=== PATIENT | male | born 1960 | race Caucasian/White ===

== ENCOUNTER 2017-02-19 09:59 | Emergency (ER) ==
[2017-02-19 10:21] LABS: MANUAL DIFF NEEDED? NO
[2017-02-19 10:31] LABS: BASO% 0.4 % (0.0-0.8); EOS# 0.09 X1000 (0.0-0.7); EOS% 1.1 % (0.0-10.0); HEMATOCRIT 43.3 % (42.0-52.0); HEMOGLOBIN 15.2 g/dL (14.0-18.0); IMM GRAN# 0.03 X1000 (0.0-0.04); IMM GRAN% 0.4 % (0.0-0.5); LYMPH# 1.18 X1000 (1.2-3.4); LYMPH% 14.1 % (20.5-51.1); MCH 30.3 PG (27-31); MCHC 35.1 g/dL (33-37); MCV 86.4 FL (81-99); MONO# 0.57 X1000 (0.11-0.59); MONO% 6.8 % (1.7-9.3); MPV 10.8 FL (7.4-10.4); NEUT% 77.2 % (42.2-75.2); PLT 235 X1000 (130-400); RBC 5.01 XMIL (4.7-6.1)
[2017-02-19 10:48] LABS: AGAP 14; ALBUMIN 4.4 g/dL (3.5-5.0); ALKALINE PHOSPHATASE 108 U/L (32-122); AMYLASE 31 U/L (20-200); BUN 12 mg/dL (8-22); CALCIUM 9.8 mg/dL (8.8-10.2); CHLORIDE 90 mmol/L (98-107); COSMO 270; GOT 37 U/L (10-34); GPT 48 U/L (10-44); LIPASE 32 U/L (13-60); POTASSIUM 3.9 mmol/L (3.5-5.1); SODIUM 132 mmol/L (136-145); TCO2 28 mmol/L (25-35); TOTAL BILIRUBIN 1.13 mg/dL (0.20-1.00)
[2017-02-19 11:22] LABS: URINE CULTURE NEEDED? NO; URINE MICRO REVIEW NEEDED? NO; URINE SOURCE CLEAN CATCH
[2017-02-19 11:34] LABS: BILIRUBIN URINE NEGATIVE (NEGATIVE); BLOOD URINE NEGATIVE (NEGATIVE); COLOR YELLOW; GLUCOSE URINE 200 mg/dL (NEGATIVE); LEUKOCYTES URINE NEGATIVE (NEGATIVE); NITRITE URINE NEGATIVE (NEGATIVE); PROTEIN URINE 50 mg/dL (NEGATIVE); SP GRAVITY URINE 1.014; TURBIDITY URINE CLEAR (CLEAR); UROBILINOGEN URINE NORMAL (NORMAL)
[2017-02-19 11:37] LABS: UR EPITHELIAL CELLS <10 /HPF (<10); URINE BACTERIA NEGATIVE /HPF; URINE RBC <10 /HPF (<10); URINE WBC <10 /HPF (<10)
--- NOTE | 2017-02-19 11:37 | PROVIDER DOCUMENTATION ---
HPI-Abdominal Pain/GI Problem - General Chief Complaint: Abdominal Pain Stated Complaint: ABD PAIN Time Seen by Provider: 02/19/17 11:14 Source: patient Allergies/Adverse Reactions: Patient Allergies Allergy/AdvReac Type Severity Reaction Status Date / Time No Known Allergies Allergy Verified 02/19/17 11:10 Home Medications: Home Medication List Medication Instructions Recorded Confirmed Last Taken Type Amlodipine Besylate/Benazepril 1 each PO DAILY 08/26/16 02/19/17 02/19/17 05:00 History [Amlodipine-Benazepril 5-20 mg] Glipizide [Glipizide ER] 10 mg PO DAILY 08/26/16 02/19/17 02/19/17 05:00 History Levothyroxine [Synthroid] 112 microgm PO DAILY 08/26/16 02/19/17 02/19/17 05:00 History Metformin [Glucophage] 500 mg PO BID CC 08/26/16 02/19/17 02/19/17 05:00 History Metoprolol [Lopressor] 50 mg PO HS 08/26/16 02/19/17 02/19/17 05:00 History Triamterene/Hydrochlorothiazid 1 tab PO DAILY 08/26/16 02/19/17 02/19/17 05:00 History [Triamterene-Hctz 37.5-25 mg Tb] Cetirizine [Zyrtec] 10 mg PO DAILY 02/19/17 02/19/17 02/19/17 05:00 History Omeprazole 40 mg PO DAILY 02/19/17 02/19/17 02/19/17 05:00 History Ondansetron [Zofran] 4 mg PO Q6H PRN PRN #20 tablet 02/19/17 Unknown Rx Polyethylene Glycol 3350 [Miralax] 17 gm PO DAILY PRN #14 powd.pack 02/19/17 Unknown Rx - History of Present Illness-ABD Nature of Presenting Problems: 56 y/o M with history of HTN, thyroid problems, DM, gout, Crespo's esophagus presents with intermittent right sided abdominal pain that began this morning. Pain is described as a twisting and stabbing pain located in the center of his abdomen. Denies any aggravating or relieving factors. Tried water, alkaseltzer without relief. He reports nausea but no vomiting. Denies any diarrhea, fever, black stools, hematochezia. Last BM yesterday. Has occasional constipation. Review of Systems - Adult - REVIEW OF SYSTEMS - ADULT Constitutional: reports: no symptoms reported. denies: chills, fever Eyes: reports: no symptoms reported. denies: decreased vision, blurred vision Ears, Nose, Mouth & Throat: reports: no symptoms reported. denies: ear pain, hearing loss Cardiovascular: reports: no symptoms reported. denies: chest pain Respiratory: reports: no symptoms reported. denies: cough, shortness of breath , wheezing Gastrointestinal: reports: see HPI Genitourinary: reports: no symptoms reported. denies: dysuria, flank pain, hematuria Musculoskeletal: reports: no symptoms reported. denies: back pain, neck pain Integumentary: reports: no symptoms reported. denies: itching, rash Neurological: reports: no symptoms reported. denies: dizziness/vertigo, headache/migraines Psychiatric: reports: no symptoms reported Endocrine: reports: no symptoms reported Hematologic/Lymphatic: reports: no symptoms reported Allergic/Immunologic: reports: no symptoms reported All Other Systems: Reviewed and Negative Past History - Adult - PAST MEDICAL HISTORY-ADULT Review of Records: reports: Nursing Assessment Review, Medications Reviewed Major Childhood Illnesses: reports: denies history Cardiovascular: reports: HTN Endocrine/Immune: reports: Diabetes, thyroid disorder - PRIOR SURGERIES/PROCEDURES Surgical/Procedure History: reports: none - IMMUNIZATION STATUS Childhood Immunizations: See Nurse Assessment Flu Vaccine: See Nurse Assessment - FAMILY HISTORY Family History: reviewed, not pertinent Physical Exam-General - PHYSICAL EXAM-ADULT Initial Vital Signs Reviewed: Yes - CONSTITUTIONAL General Appearance: appears well, alert, no apparent distress - EYES Eyes: PERRL/EOMI, pink conjunctivae - HEAD, EARS, NOSE, MOUTH & THROAT HENMT: normocephalic/atraumatic, moist mucous membranes - NECK Neck: non-tender, full range of motion, supple - RESPIRATORY Respiratory: chest non-tender, lungs clear, normal breath sounds, no pleuratic chest pain, no respiratory distress, no accessory muscle use - CARDIOVASCULAR Cardiovascular: normal peripheral pulses, regular rate, rhythm - GASTROINTESTINAL (ABDOMEN) Abdominal Exam: normal bowel sounds, non tender, soft, distended (obese) - MUSCULOSKELETAL Back Exam: no CVA tenderness Extremity: normal inspection - SKIN Integumentary: normal color, normal turgor, warm/dry - NEUROLOGIC Neurologic: grossly normal, no motor/sensory deficits - PSYCHIATRIC Psych/Mental Status: normal mood/affect, normal thought content, normal thought process, oriented x 3 Progress - PLAN OF CARE/RESULTS Progress/Plan/Lab Results: Laboratory Tests 02/19/17 02/19/17 02/19/17 10:07 10:07 10:07 WBC 8.37 RBC 5.01 Hgb 15.2 Hct 43.3 MCV 86.4 MCH 30.3 MCHC 35.1 RDW Std Deviation 12.9 Plt Count 235 MPV 10.8 H Immature Gran % (Auto) 0.4 Neut % (Auto) 77.2 H Lymph % (Auto) 14.1 L [place] % (Auto) 6.8 Eos % (Auto) 1.1 Baso % (Auto) 0.4 Immature Gran # (Auto) 0.03 Neut # (Auto) 6.47 Lymph # (Auto) 1.18 L [place] # (Auto) 0.57 Eos # (Auto) 0.09 Baso # (Auto) 0.03 Sodium 132 L Potassium 3.9 Chloride 90 L Carbon Dioxide 28 Anion Gap 14 BUN 12 Creatinine 0.9 Estimated GFR/1.73 m2 > 60 BUN/Creatinine Ratio 13 Glucose 203 H Calculated Osmolality 270 Calcium 9.8 Total Bilirubin 1.13 H AST 37 H ALT 48 H Alkaline Phosphatase 108 Troponin T < 0.010 Total Protein 8.0 Albumin 4.4 Globulin 3.6 Albumin/Globulin Ratio 1.2 Amylase 31 Lipase 32 Urine Source Urine Color Urine Turbidity Urine pH Ur Specific [place] Urine Protein Ur Glucose (Stick) Ur Ketones (Stick) Urine Blood Urine Nitrite Urine Bilirubin Urobilinogen Dipstick Urine Leukocytes Urine WBC (Auto) Urine RBC (Auto) U Epithel Cells (Auto) Urine Bacteria (Auto) 02/19/17 11:00 WBC RBC Hgb Hct MCV MCH MCHC RDW Std Deviation Plt Count MPV Immature Gran % (Auto) Neut % (Auto) Lymph % (Auto) [place] % (Auto) Eos % (Auto) Baso % (Auto) Immature Gran # (Auto) Neut # (Auto) Lymph # (Auto) [place] # (Auto) Eos # (Auto) Baso # (Auto) Sodium Potassium Chloride Carbon Dioxide Anion Gap BUN Creatinine Estimated GFR/1.73 m2 BUN/Creatinine Ratio Glucose Calculated Osmolality Calcium Total Bilirubin AST ALT Alkaline Phosphatase Troponin T Total Protein Albumin Globulin Albumin/Globulin Ratio Amylase Lipase Urine Source CLEAN CATCH Urine Color YELLOW Urine Turbidity CLEAR Urine pH 6.0 Ur Specific [place] 1.014 Urine Protein 50 A Ur Glucose (Stick) 200 A Ur Ketones (Stick) NEGATIVE Urine Blood NEGATIVE Urine Nitrite NEGATIVE Urine Bilirubin NEGATIVE Urobilinogen Dipstick NORMAL Urine Leukocytes NEGATIVE Urine WBC (Auto) <10 Urine RBC (Auto) <10 U Epithel Cells (Auto) <10 Urine Bacteria (Auto) NEGATIVE Orders Category Date Time Status IV Insertion ORDERED Care 02/19/17 11:[address] ABD/PELVIS W/ IV CONT ONLY [CT] Stat Exams 02/19/17 11:41 Draft AMYLASE [CHEM] Stat Lab 02/19/17 10:07 Completed CBC WITH ELECTRONIC DIFF [HEME] Stat Lab 02/19/17 10:07 Completed COMPREHENSIVE METABOLIC PANEL [CHEM] Stat Lab 02/19/17 10:07 Completed LIPASE [CHEM] Stat Lab 02/19/17 10:07 Completed TROPONIN T Stat Lab 02/19/17 10:07 Completed URINALYSIS W/POSS RFLX CULT [URINALYSIS] Stat Lab 02/19/17 11:00 Completed Ondansetron [Zofran] Med 02/19/17 11:41 Discontinued 4 mg IV NOW ONE Vital Signs Temp Pulse Resp BP Pulse Ox 02/19/17 11:30 80 16 173/97 100 02/19/17 10:03 97.6 F 66 18 167/93 100 No Known Allergies Allergy (Verified 02/19/17 11:10) Amlodipine Besylate/Benazepril [Amlodipine-Benazepril 5-20 mg] 1 each PO DAILY 08/26/16 Glipizide [Glipizide ER] 10 mg PO DAILY 08/26/16 Levothyroxine [Synthroid] 112 microgm PO DAILY 08/26/16 Metformin [Glucophage] 500 mg PO BID CC 08/26/16 Metoprolol [Lopressor] 50 mg PO HS 08/26/16 Triamterene/Hydrochlorothiazid [Triamterene-Hctz 37.5-25 mg Tb] 1 tab PO DAILY 08/26/16 Cetirizine [Zyrtec] 10 mg PO DAILY 02/19/17 Omeprazole 40 mg PO DAILY 02/19/17 Ondansetron [Zofran] 4 mg PO Q6H PRN PRN #20 tablet 02/19/17 Polyethylene Glycol 3350 [Miralax] 17 gm PO DAILY PRN #14 powd.pack 02/19/17 I&O 02/18/17 02/19/17 02/20/17 06:59 06:59 06:59 Output Total 40 Balance -40 Laboratory 02/19/17 02/19/17 02/19/17 11:00 10:07 10:07 WBC 8.37 RBC 5.01 Hgb 15.2 Hct 43.3 MCV 86.4 MCH 30.3 MCHC 35.1 RDW Std Deviation 12.9 Plt Count 235 MPV 10.8 H Immature Gran % (Auto) 0.4 Neut % (Auto) 77.2 H Lymph % (Auto) 14.1 L [place] % (Auto) 6.8 Eos % (Auto) 1.1 Baso % (Auto) 0.4 Immature Gran # (Auto) 0.03 Neut # (Auto) 6.47 Lymph # (Auto) 1.18 L [place] # (Auto) 0.57 Eos # (Auto) 0.09 Baso # (Auto) 0.03 Sodium Potassium Chloride Carbon Dioxide Anion Gap BUN Creatinine Estimated GFR/1.73 m2 BUN/Creatinine Ratio Glucose Calculated Osmolality Calcium Total Bilirubin AST ALT Alkaline Phosphatase Troponin T < 0.010 Total Protein Albumin Globulin Albumin/Globulin Ratio Amylase Lipase Urine Source CLEAN CATCH Urine Color YELLOW Urine Turbidity CLEAR Urine pH 6.0 Ur Specific [place] 1.014 Urine Protein 50 A Ur Glucose (Stick) 200 A Ur Ketones (Stick) NEGATIVE Urine Blood NEGATIVE Urine Nitrite NEGATIVE Urine Bilirubin NEGATIVE Urobilinogen Dipstick NORMAL Urine Leukocytes NEGATIVE Urine WBC (Auto) <10 Urine RBC (Auto) <10 U Epithel Cells (Auto) <10 Urine Bacteria (Auto) NEGATIVE 02/19/17 10:07 WBC RBC Hgb Hct MCV MCH MCHC RDW Std Deviation Plt Count MPV Immature Gran % (Auto) Neut % (Auto) Lymph % (Auto) [place] % (Auto) Eos % (Auto) Baso % (Auto) Immature Gran # (Auto) Neut # (Auto) Lymph # (Auto) [place] # (Auto) Eos # (Auto) Baso # (Auto) Sodium 132 L Potassium 3.9 Chloride 90 L Carbon Dioxide 28 Anion Gap 14 BUN 12 Creatinine 0.9 Estimated GFR/1.73 m2 > 60 BUN/Creatinine Ratio 13 Glucose 203 H Calculated Osmolality 270 Calcium 9.8 Total Bilirubin 1.13 H AST 37 H ALT 48 H Alkaline Phosphatase 108 Troponin T Total Protein 8.0 Albumin 4.4 Globulin 3.6 Albumin/Globulin Ratio 1.2 Amylase 31 Lipase 32 Urine Source Urine Color Urine Turbidity Urine pH Ur Specific [place] Urine Protein Ur Glucose (Stick) Ur Ketones (Stick) Urine Blood Urine Nitrite Urine Bilirubin Urobilinogen Dipstick Urine Leukocytes Urine WBC (Auto) Urine RBC (Auto) U Epithel Cells (Auto) Urine Bacteria (Auto) Patient with fatty liver disease and chronically elevated LFT when compared to prior labs. CT scan shows constipation, otherwise no acute process. Will discharge home with miralax and zofran and follow up with PCP. - CT/MRI 1 CT Study: Abdomen, Pelvis CT Results: constipation, otherwise no acute process. Departure - Departure Time of Disposition Order: 13:33 DIAGNOSIS: Constipation, Generalized abdominal pain Disposition: HOME 01 Certified Medical Emergency: Emergent Condition: Good Additional Instructions: ED Follow Up Instructions: You have been treated by a care provider in the Emergency Department. These instructions are being provided to you so you can have an understanding of how to care for yourself upon discharge. Upon discharge from the Emergency Department, you are responsible for making arrangements for follow-up care by a physician of your choice. Take all prescribed medications as directed. Return to the Emergency Department immediately for any new or worsening symptoms. You may call the Physician Referral phone number at [phone] to obtain a list of Physicians who are taking new patients. Prescriptions: Polyethylene Glycol 3350 [Miralax] 17 gm PO DAILY PRN #14 powd.pack PRN Reason: Constipation Ondansetron [Zofran] 4 mg PO Q6H PRN PRN #20 tablet PRN Reason: Nausea Referrals: Latha Snyder MD [Primary Care Provider] - Attestation - Physician/ RENEE Attestation Patient care was provided by Advanced Practice Provider:: Yes Advanced Practice Provider:: Melisa Hughes Advanced Practice Provider documentation review:: The Mid-level provider documentation, treatment plan and medical decision making was reviewed by the physician who agrees with all treatment and medical decision making by the [facility].
[2017-02-19] MEDS ORDERED: ZOFRAN IV ONE (11:41)
--- NOTE | 2017-02-19 13:27 | Diag Imaging Result Document ---
PROCEDURE NAME: CT ABD/PELVIS W/ IV CONT ONLY - 02/19/2017 CT ABDOMEN AND PELVIS WITH IV CONTRAST ONLY: TECHNIQUE: Exam performed with intravenous contrast only per request of the referring provider. A dose reduction protocol was used. COMPARISON: No comparison exam. FINDINGS: The visualized lung bases appear clear except for a small calcified granuloma from old granulomatous disease at the right base. The liver is somewhat prominent in size and is of diffusely decreased attenuation consistent with fatty infiltration. There is no focal liver lesion identified. The spleen appears upper limits of normal in size and demonstrates homogeneous attenuation. There are no calcified gallstones or pericholecystic inflammatory changes identified. There is no pancreatic mass or inflammation identified. There is nonspecific mild fullness of the bilateral adrenal glands. There is no focal adrenal mass identified. There is a 1.5 cm low-density lesion compatible with cyst arising from the posterior mid to lower right kidney. The bilateral kidneys otherwise enhance homogeneously. There is no hydronephrosis. There are multiple small and a few borderline retroperitoneal lymph nodes. There is no evidence of bowel obstruction. The appendix extends superomedially from the cecum and does not appear inflamed. There is no substantial bowel wall thickening identified. There is a moderate amount of retained fecal debris in the colon suggesting constipation. There is no abscess identified. There is no free air. There is minimal perihepatic ascites. IMPRESSION: 1. Hepatomegaly with fatty infiltration of the liver. No focal liver lesion. Upper limits of normal splenic size. 2. Small right renal cyst. No hydronephrosis. 3. Small to borderline retroperitoneal lymph nodes. 4. No bowel obstruction. Unremarkable appendix. 5. No abscess. No free air. 6. Apparent constipation.
[2017-02-19 14:10] VITALS: BP 149/86
--- NOTE | 2017-02-20 05:56 | EKG Report ---
Test Performed on : 02/19/2017 1:30:55 PM Test Reason : ABD PAIN Blood Pressure : / mmHG Vent. Rate : 087 BPM Atrial Rate : 087 BPM P-R Int : 172 ms QRS Dur : 110 ms QT Int : 384 ms P-R-T Axes : 042 028 017 degrees QTc Int : 462 ms Normal sinus rhythm. Normal ECG When compared with ECG of 26-AUG-2016 08:01, No significant change was found Unconfirmed Result
== END 2017-02-19 14:10 | disposition home or self-care (01) ==
LOC: ED 09:59
DX: K59.00 Constipation, unspecified (principal); R10.84 Generalized abdominal pain; K76.0 Fatty (change of) liver, not elsewhere classified; N28.1 Cyst of kidney, acquired; R11.0 Nausea; I10 Essential (primary) hypertension; E11.9 Type 2 diabetes mellitus without complications; E07.9 Disorder of thyroid, unspecified; E66.9 Obesity, unspecified; Z79.899 Other long term (current) drug therapy
CPT/HCPCS: 36415; 74177; 80053; 81001; 82150; 83690; 84484; 85025; 93005; 96374; J2405; Q9967